=== PATIENT | female | born 1935 | race Caucasian/White ===

== ENCOUNTER 2016-09-21 13:54 | Emergency (ER) | payer MEDICARE, OTHER ==
[2016-09-21] MEDS ORDERED: BENZONATATE 100 MG CAPSULE PO STA (15:15)
[2016-09-21] MEDS ORDERED: BENZONATATE 100 MG CAPSULE PO ONE (15:27)
== END 2016-09-21 17:00 | disposition home or self-care (01) ==
DX: J10.1 Influenza due to other identified influenza virus with other respiratory manifestations (principal); Z79.82 Long term (current) use of aspirin
CPT/HCPCS: 71020; 87275; 87276; 99283; 99284; A9270

== ENCOUNTER 2018-07-19 14:22 | Outpatient (CLI) | payer MEDICARE, OTHER | END 2018-07-19 14:23 | disposition home or self-care (01) | LOC: LAB 14:22 | PROVIDERS: ATTEND Ophthalmology | DX: Z53.9 Procedure and treatment not carried out, unspecified reason (principal) ==

== ENCOUNTER 2018-07-26 15:17 | Outpatient (CLI) | payer MEDICARE, OTHER | END 2018-07-26 15:18 | disposition home or self-care (01) | LOC: LAB 15:17 | PROVIDERS: ATTEND Ophthalmology | DX: H02.421 Myogenic ptosis of right eyelid (principal); H02.422 Myogenic ptosis of left eyelid | CPT/HCPCS: 36415; 81599; 83519 ==

== ENCOUNTER 2019-06-01 22:25 | Emergency (ER) | payer MEDICARE, OTHER ==
--- NOTE | 2019-06-01 22:59 | XRAY Report ---
Reason: injury to R wrist from fall Procedure Date: 06/01/2019 Accession Number: [id number] / [id number] Procedure: XR - Wrist 3 View RT CPT Code: FULL RESULT: EXAM: RIGHT WRIST RADIOGRAPHY EXAM DATE: 06/01/2019 10:46 PM. CLINICAL HISTORY: Pain after injury. COMPARISON: HAND 3 VIEW RT 06/10/2014 9:06 PM. TECHNIQUE: 3 views. FINDINGS: Bones: Osteopenia. Old ununited ulnar styloid fracture. Old healed fracture of the distal radial metaphysis. No acute fracture seen. Joints: No dislocation. Mild degenerative changes in the wrist. Soft Tissues: Soft tissue swelling. IMPRESSION: 1. No acute fracture or dislocation seen. RADIA
--- NOTE | 2019-06-02 00:29 | ED Physician Documentation ---
PD HPI UPPER EXT INJURY - Stated complaint Stated Complaint: WRIST PX/FALL - Chief complaint Chief Complaint: Trauma Ext - History obtained from History obtained from: Patient - History of Present Illness Location: Right, Wrist Type of injury: Fall Where injury occurred: Home Timing - onset: Enter time (16:00) Timing - details: Gradual onset Pain level now: 5 Improved by: Rest Worsened by: Moving, Palpating Associated symptoms: Swelling. No: Weakness, Numbness Contributing factors: No: Anticoagulated Recently seen: Not recently seen - Additonal information Additional information: fell backwards onto buttocks and outstretched hands at 4 PM today; she was stomping on empty cardboard boxes to make them easier to stack when this happened. denies head injury, denies LOC. She c/o right wrist pain. patient is right hand dominant Review of Systems Skin: reports: Reviewed and negative Musculoskeletal: reports: Joint pain, Joint swelling. denies: Neck pain, Back pain Neurologic: reports: Reviewed and negative PD PAST MEDICAL HISTORY - Past Medical History Past Medical History: Yes HEENT: Glaucoma - Past Surgical History Past Surgical History: Yes General: Cholecystectomy HEENT: Cataracts - Present Medications Home Medications: Ambulatory Orders Medication Instructions Recorded Confirmed Latanoprost 0.005% Ophth Drops 1 drops OPTH QPM 04/06/13 09/21/16 [Xalatan] Aspirin [Aspir-Low] 81 mg PO DAILY 09/21/16 09/21/16 Timolol 0.25% Ophth Drops 1 drops LEFTEYE DAILY 09/21/16 09/21/16 [Timoptic 0.25% Ophth Drops] guaiFENesin/CODEINE [Robitussin AC] 5 - 10 ml PO Q6H PRN #120 ml 09/21/16 - Allergies Allergies/Adverse Reactions: Allergies Allergy/AdvReac Type Severity Reaction Status Date / Time No Known Drug Allergies Allergy Verified 06/01/19 22:35 - Living Situation Living Arrangement: reports: At home - Social History Does the pt smoke?: No Smoking Status: Never smoker Does the pt drink ETOH?: No Does the pt have substance abuse?: No - Immunizations Immunizations are current?: Yes - POLST Patient has POLST: No PD ED PE NORMAL - Vitals Vital signs reviewed: Yes - General General: Alert and oriented X 3, No acute distress, Well developed/nourished - HEENT HEENT: Atraumatic, PERRL, EOMI, Moist mucous membranes - Derm Derm: Normal color, Warm and dry - Neuro Neuro: Alert and oriented X 3, No motor deficit, No sensory deficit PD ED PE EXPANDED - Extremities ROMEL UE/Hands Visual: 1 - swelling, tenderness Results - Vitals Vitals: Vital Signs - 24 hr 06/01/19 06/02/19 22:30 00:52 Temperature 36.0 C L 36.8 C Heart Rate 82 67 Respiratory 18 18 Rate Blood Pressure 143/82 H 136/74 H O2 Saturation 99 97 Oxygen O2 Source Room air - Rads (name of study) right wrist xrays Radiology: Prelim report reviewed, See rad report PD MEDICAL DECISION MAKING - ED course Complexity details: reviewed results, re-evaluated patient, considered differential, d/w patient Departure - Departure Disposition: 01 Home, Self Care Clinical Impression: Right wrist sprain Qualifiers: Encounter type: initial encounter Qualified Code(s): S63.501A - Unspecified sprain of right wrist, initial encounter Fall Qualifiers: Encounter type: initial encounter Qualified Code(s): W19.XXXA - Unspecified fall, initial encounter Condition: Good Instructions: ED [facility], ED Sprain Wrist Follow-Up: Ron Carbajal MD [Primary Care Provider] - Comments: Wear the splint for 2-3 days, and then as needed for comfort. Discharge Date/Time: 06/02/19 00:55
[2019-06-02 00:53] VITALS: BP 136/74
== END 2019-06-02 00:55 | disposition home or self-care (01) ==
LOC: ED 22:25
DX: S63.501A Unspecified sprain of right wrist, initial encounter (principal); W18.30XA Fall on same level, unspecified, initial encounter; Y93.89 Activity, other specified; Y92.009 Unspecified place in unspecified non-institutional (private) residence as the place of occurrence of the external cause
CPT/HCPCS: 99282; 99283